=== PATIENT | male | born 1965 | race Caucasian/White ===

== ENCOUNTER 2019-04-12 06:15 | Day surgery (SDC) | payer OTHER | END 2019-04-12 15:45 | disposition home or self-care (01) | LOC: CIR.AMB 06:15 | DX: K60.3 Anal fistula (principal) ==

== ENCOUNTER 2019-05-30 16:07 | Emergency (ER) | payer OTHER ==
[~2019-05-30] VITALS: Ht 180.3 cm; Wt 61.2 kg
[2019-05-30] MEDS ORDERED: PERCOCET 10-321 EACH PO (16:21)
== END 2019-05-30 18:27 | disposition home or self-care (01) ==
LOC: ER 16:07
DX: L02.31 Cutaneous abscess of buttock (principal)

== ENCOUNTER 2019-08-08 12:17 | Inpatient (IN) | payer OTHER ==
[~2019-08-08] VITALS: Ht 162.6 cm; Wt 55.3 kg
[~2019-08-08 12:17] MED LIST: PERCOCET 10-321 EACH PO
[2019-08-08] MEDS ORDERED: OXYCONTIN10 M1 (13:23)
[2019-08-08] MEDS ORDERED: FLAGYL500MG (13:24)
[2019-08-08] MEDS ORDERED: CIPRO500 MG (13:24)
== END 2019-08-12 13:04 | disposition home or self-care (01) | DRG 330 ==
LOC: ER 12:17 → SURH 14:38
PROVIDERS: ADMIT Colon & Rectal Surgery
PROC: 0D9P3ZX Drainage of Rectum, Percutaneous Approach, Diagnostic (ICD-10-PCS; 2019-08-09)
PROC: 0DBP3ZX Excision of Rectum, Percutaneous Approach, Diagnostic (ICD-10-PCS; 2019-08-09)
PROC: 0D1N4Z4 Bypass Sigmoid Colon to Cutaneous, Percutaneous Endoscopic Approach (ICD-10-PCS; principal; 2019-08-09 13:00)
DX: C20 Malignant neoplasm of rectum (principal); C77.5 Secondary and unspecified malignant neoplasm of intrapelvic lymph nodes; K56.699 Other intestinal obstruction unspecified as to partial versus complete obstruction; C76.3 Malignant neoplasm of pelvis

== ENCOUNTER 2021-02-25 12:01 | Inpatient (IN) | payer OTHER ==
[~2021-02-25] VITALS: Ht 180.3 cm; Wt 76.7 kg
[~2021-02-25 12:01] MED LIST changes: +CIPRO500 MG; +FLAGYL500MG; +OXYCONTIN10 M1
[2021-02-25] MEDS ORDERED: GABAPENTIN300 M2 PO (14:22)
[2021-02-26] MEDS ORDERED: PANTOPRAZOLE SO40 MG (10:12)
[2021-02-26] MEDS ORDERED: CAPECITABINE500 MG (10:12)
== END 2021-03-12 16:47 | disposition home or self-care (01) | DRG 330 ==
LOC: O/R 02-26 06:20 → SURG 02-26 06:20 → SURH 02-26 06:20 → SURG 02-27 08:19 → SURH 03-04 16:46
PROVIDERS: ADMIT Colon & Rectal Surgery; ATTEND Colon & Rectal Surgery
PROC: 0DTP0ZZ Resection of Rectum, Open Approach (ICD-10-PCS; 2021-02-26)
PROC: 0DBQ0ZZ Excision of Anus, Open Approach (ICD-10-PCS; 2021-02-26)
PROC: 07BC0ZX Excision of Pelvis Lymphatic, Open Approach, Diagnostic (ICD-10-PCS; 2021-02-26)
PROC: 0WQF0ZZ Repair Abdominal Wall, Open Approach (ICD-10-PCS; 2021-02-26)
PROC: 0DBN0ZZ Excision of Sigmoid Colon, Open Approach (ICD-10-PCS; principal; 2021-02-26 07:00)
PROC: 0DJD0ZZ Inspection of Lower Intestinal Tract, Open Approach (ICD-10-PCS; 2021-03-02)
PROC: 3E0F7SF Introduction of Other Gas into Respiratory Tract, Via Natural or Artificial Opening (ICD-10-PCS; 2021-03-02)
PROC: 30233N1 Transfusion of Nonautologous Red Blood Cells into Peripheral Vein, Percutaneous Approach (ICD-10-PCS; 2021-03-02)
PROC: 4A12X4Z Monitoring of Cardiac Electrical Activity, External Approach (ICD-10-PCS; 2021-03-03)
PROC: 02HV33Z Insertion of Infusion Device into Superior Vena Cava, Percutaneous Approach (ICD-10-PCS; 2021-03-05)
DX: C20 Malignant neoplasm of rectum (principal); K92.0 Hematemesis; E87.1 Hypo-osmolality and hyponatremia; J98.11 Atelectasis; K91.32 Postprocedural complete intestinal obstruction; N17.8 Other acute kidney failure; R59.0 Localized enlarged lymph nodes; R09.02 Hypoxemia; K43.5 Parastomal hernia without obstruction or gangrene; K60.3 Anal fistula; E87.6 Hypokalemia

== ENCOUNTER 2024-04-08 04:17 | Emergency (ER) | payer OTHER ==
[~2024-04-08] VITALS: Ht 180.3 cm; Wt 74.4 kg
[~2024-04-08 04:17] MED LIST changes: +CAPECITABINE500 MG; +GABAPENTIN300 M2 PO; +PANTOPRAZOLE SO40 MG
[2024-04-08] MEDS ORDERED: TAMS0.4C PO (04:49)
[2024-04-08 06:16] LABS: HEMATOCRIT 39.4 % (39.0-48.0); HEMOGLOBIN 13.8 g/dL (13-16.00); MEAN CORPUSCULAR HEMOGLOBIN 30.8 pg (27.00-32.0); MEAN CORPUSCULAR HGB CONC 34.9 g/dl (32.0-36.0); PLATELET COUNT 232 K/uL (150-450); RED BLOOD COUNT 4.48 M/uL (4.00-6.00); RED CELL DISTRIBUTION WIDTH 16.7 % (11.5-14.5)
[2024-04-08 06:46] LABS: ALBUMIN 4.1 gm/dL (3.4-5.0); BILIRUBIN TOTAL 0.85 mg/dL (0.3-1.2); CALCIUM 9.7 mg/dL (8.5-10.1); CREATININE SERUM 0.79 mg/dL (0.70-1.30); GFR 100.39; GLOBULINA 4.3 G/DL (2.4-3.5); POTASSIUM 3.5 mEq/L (3.5-5.1); TOTAL PROTEIN 8.4 gm/dL (6.4-8.2)
[2024-04-08 06:59] LABS: PH,URINE 5.5 (5.0-8.0); URINE APPEARANCE Clear; URINE BILIRRUBIN Negative (NEGATIVE); URINE BLOOD Large; URINE COLOR Yellow; URINE GLUCOSE Negative (NEGATIVE); URINE KETONE Negative (NEGATIVE); URINE LEUKOCYTE Negative; URINE NITRATE Negative; URINE PROTEIN 30 (NEGATIVE); URINE UROBILINOGEN 0.2 E.U./dl
[2024-04-08 07:00] LABS: URINE BACTERIA 8.8 uL (0.0-1933); URINE EPITHELIAL CELLS 3.5 uL (0.0-38.8); URINE RBC 739.7 uL (0.0-20.8); URINE WBC 9.1 uL (0.0-23.2)
[2024-04-08] MEDS ORDERED: MORPHINE SULFATE 4 MG/ML VIAL IV STA (15:03)
[2024-04-08] MEDS ORDERED: MORPHINE SULFATE 4 MG/ML VIAL IV PRN (15:15)
== END 2024-04-08 15:59 ==
LOC: ER 04:19
PROVIDERS: General Practice
DX: R33.8 Other retention of urine (principal); C78.5 Secondary malignant neoplasm of large intestine and rectum; C79.51 Secondary malignant neoplasm of bone; C79.89 Secondary malignant neoplasm of other specified sites; N39.0 Urinary tract infection, site not specified; Z85.89 Personal history of malignant neoplasm of other organs and systems